=== PATIENT | male | born 1965 | race Caucasian/White ===

== ENCOUNTER 2016-11-01 12:15 | Emergency (ER) | payer OTHER ==
[2016-11-01 12:27] VITALS: O2SAT 94
[2016-11-01] MEDS ORDERED: IBUPROFEN 200 MG TAB PO ONE (12:58)
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
[2016-11-01 15:26] VITALS: BP 130/80; PULSE 66; RESP 18; TEMP 98.2
== END 2016-11-01 15:23 | disposition home or self-care (01) ==
DX: S16.1XXA Strain of muscle, fascia and tendon at neck level, initial encounter (principal); F17.200 Nicotine dependence, unspecified, uncomplicated; V68.0XXA Driver of heavy transport vehicle injured in noncollision transport accident in nontraffic accident, initial encounter; Y92.410 Unspecified street and highway as the place of occurrence of the external cause; Y99.0 Civilian activity done for income or pay; Y93.89 Activity, other specified